=== PATIENT | female | born 1955 | race Caucasian/White ===

== ENCOUNTER → 2016-07-15 | Outpatient (REF) | payer OTHER ==
[2016-07-15 17:22] LABS: ALBUMIN 3.7 GM/DL (3.2-5.2); ALBUMIN/GLOBULIN RATIO 1.06 (1.00-1.93); ALKALINE PHOSPHATASE 108 U/L (45-117); ALT/SGPT 21 U/L (12-78); ANION GAP 7 MEQ/L (8-16); AST/SGOT 10 U/L (15-37); BILIRUBIN,TOTAL 0.8 MG/DL (0.2-1.0); BLOOD UREA NITROGEN 11 MG/DL (7-18); CALCIUM LEVEL 8.2 MG/DL (8.8-10.2); CARBON DIOXIDE LEVEL 29 MEQ/L (21-32); CHLORIDE LEVEL 102 MEQ/L (98-107); CREATININE FOR GFR 0.88 MG/DL (0.55-1.02); GLOMERULAR FILTRATION RATE > 60.0 (>45); GLUCOSE, FASTING 97 MG/DL (80-110); POTASSIUM SERUM 3.5 MEQ/L (3.5-5.1); SODIUM LEVEL 138 MEQ/L (136-145); TOTAL PROTEIN 7.2 GM/DL (6.4-8.2)
[2016-07-15 17:31] LABS: BASO % 0.5 % (0.0-1.0); EOS # 0.1 K/mm3 (0.0-0.50); EOS % 1.8 % (0.0-3.0); LARGE UNSTAINED CELL # 0.1 K/mm3 (0.0-0.4); LARGE UNSTAINED CELL % 1.6 % (0.0-4.0); LYMPH % 25.2 % (24.0-44.0); MEAN CORPUSCULAR HEMOGLOBIN 26.5 pg (27.0-33.0); MEAN CORPUSCULAR HGB CONC 31.6 g/dl (32.0-36.5); MEAN CORPUSCULAR VOLUME 83.8 fl (80.0-96.0); MONO # 0.3 K/mm3 (0.0-0.8); MONO % 4.2 % (0.0-5.0); NEUTROPHILS # 5.2 K/mm3 (1.8-7.7); NEUTROPHILS % 66.6 % (36.0-66.0); PLATELET COUNT, AUTOMATED 289 k/mm3 (150-450); WHITE BLOOD COUNT 7.7 K/mm3 (4.0-10.0)
== END ==
LOC: M LABNEURO 14:34
PROVIDERS: ATTEND Psychiatry & Neurology Neurology
DX: G35 Multiple sclerosis (principal)

== ENCOUNTER → 2016-11-06 | Outpatient (REF) | payer OTHER, SELFPAY ==
[2016-11-06 14:05] LABS: TOTAL PROTEIN 7.7 GM/DL (6.4-8.2)
[2016-11-06 15:23] LABS: IMMUNOGLOBULIN G 1330 MG/DL (681-1648); IMMUNOGLOBULIN M 85.3 MG/DL (40-230)
[2016-11-08 18:14] LABS: FREE KAPPA LIGHT CHAINS SERUM 26.2 mg/L (3.3-19.4); FREE LAMBDA LIGHT CHAINS SERUM 68.6 mg/L (5.7-26.3); KAPPA/LAMBDA RATIO SERUM 0.38 (0.26-1.65)
[2016-11-10 10:30] LABS: ALBUMIN % 55.2 % (55.8-66.1)
[2016-11-10 10:31] LABS: ALBUMIN 4.25 GM/DL (3.29-5.55); GAMMA GLOBULIN % 18.3 % (11.1-18.8)
== END ==
LOC: M LAB REF 12:56
PROVIDERS: ATTEND Internal Medicine Medical Oncology
DX: D47.2 Monoclonal gammopathy (principal)

== ENCOUNTER → 2017-07-20 | Outpatient (REF) | payer OTHER ==
[2017-07-20 18:06] LABS: BASO # 0.1 10^3/uL (0.0-0.2); BASO % 0.6 % (0.0-1.0); EOS # 0.2 10^3/uL (0.0-0.50); EOS % 2.2 % (0.0-3.0); HEMATOCRIT 40.5 % (36.0-47.0); HEMOGLOBIN 12.7 g/dl (12.0-16.0); IMMATURE GRANULOCYTE % 0.2 % (0-3.0); LYMPH # 2.4 10^3/uL (1.5-4.5); LYMPH % 29.2 % (24.0-44.0); MEAN CORPUSCULAR HGB CONC 31.4 g/dl (32.0-36.5); MEAN CORPUSCULAR VOLUME 86.2 fl (80.0-96.0); MONO # 0.5 10^3/uL (0.0-0.8); MONO % 5.5 % (0.0-5.0); NEUTROPHILS # 5.2 10^3/uL (1.8-7.7); NEUTROPHILS % 62.3 % (36.0-66.0); PLATELET COUNT, AUTOMATED 326 10^3/uL (150-450); RED CELL DISTRIBUTION WIDTH 14.7 % (11.5-14.5); WHITE BLOOD COUNT 8.3 10^3/uL (4.0-10.0)
[2017-07-20 18:11] LABS: FOLATE 15.8 NG/ML
[2017-07-20 18:13] LABS: ALBUMIN 3.9 GM/DL (3.2-5.2); ALBUMIN/GLOBULIN RATIO 1.05 (1.00-1.93); ALKALINE PHOSPHATASE 101 U/L (45-117); ALT/SGPT 26 U/L (12-78); ANION GAP 8 MEQ/L (8-16); AST/SGOT 14 U/L (7-37); BILIRUBIN,TOTAL 0.8 MG/DL (0.2-1.0); BLOOD UREA NITROGEN 17 MG/DL (7-18); CALCIUM LEVEL 8.8 MG/DL (8.8-10.2); CARBON DIOXIDE LEVEL 28 MEQ/L (21-32); CHLORIDE LEVEL 101 MEQ/L (98-107); CREATININE FOR GFR 1.09 MG/DL (0.55-1.30); GLOMERULAR FILTRATION RATE 54.3 (>45); GLUCOSE, FASTING 95 MG/DL (70-100); POTASSIUM SERUM 3.9 MEQ/L (3.5-5.1); SODIUM LEVEL 137 MEQ/L (136-145); TOTAL PROTEIN 7.6 GM/DL (6.4-8.2)
[2017-07-20 19:44] LABS: VITAMIN B12 LEVEL 388 PG/ML
== END ==
LOC: M LABNEURO 13:59
DX: G35 Multiple sclerosis (principal)

== ENCOUNTER → 2017-08-07 | Outpatient (REF) | payer OTHER ==
[2017-08-07 14:08] LABS: IMMUNOGLOBULIN G 1320 MG/DL (681-1648); IMMUNOGLOBULIN M 67.9 MG/DL (40-230); TOTAL PROTEIN 7.6 GM/DL (6.4-8.2)
[2017-08-10 00:06] LABS: FREE KAPPA LIGHT CHAINS SERUM 27.9 mg/L (3.3-19.4); FREE LAMBDA LIGHT CHAINS SERUM 72.5 mg/L (5.7-26.3); KAPPA/LAMBDA RATIO SERUM 0.38 (0.26-1.65)
[2017-08-10 00:06] LABS: BETA 2 MICROGLOBULIN 2.7 mg/L (0.6-2.4)
[2017-08-11 11:09] LABS: ALBUMIN 4.14 GM/DL (3.29-5.55); ALBUMIN % 54.5 % (55.8-66.1); ALPHA-1-GLOBULIN % 4.9 % (2.9-4.9); ALPHA-1-GLOBULINS 0.37 GM/DL (0.17-0.41); ALPHA-2-GLOBULINS % 9.9 % (7.1-11.8); BETA-1-GLOBULINS % 6.7 % (4.7-7.2); BETA-2-GLOBULINS % 5.9 % (3.2-6.5); GAMMA GLOBULIN % 18.1 % (11.1-18.8)
[2017-08-11 11:10] LABS: ALPHA-2-GLOBULINS 0.75 GM/DL (0.42-0.99); BETA-1-GLOBULINS 0.51 GM/DL (0.28-0.60); BETA-2-GLOBULINS 0.45 GM/DL (0.19-0.55); GAMMA GLOBULINS 1.38 GM/DL (0.65-1.58)
== END ==
LOC: M LAB REF 13:17
DX: D47.2 Monoclonal gammopathy (principal)
CPT/HCPCS: 84165

== ENCOUNTER → 2023-08-12 | Outpatient (CLI) | payer OTHER ==
[~2023-08-12] VITALS: Ht 165.1 cm; Wt 102.0 kg
[~2023-08-12] MED LIST: COPA1INJ INJ; HYDR50TA70 PO; LEVO-94 PO; LEVO125T4; LISI20TA37 PO; MIRT1TAB16 PO; VITA200016
[2023-08-12 12:00] VITALS: BP 147/70; O2SAT 97
[2023-08-12] MEDS: IRON SUCROSE 300 MG in NS 250 ML OVER 90 MIN. IV ONE (12:10)
[2023-08-12 14:00] VITALS: BP 141/65; O2SAT 100
== END ==
LOC: M INFU 11:38
PROVIDERS: ATTEND Nurse Practitioner
DX: D50.9 Iron deficiency anemia, unspecified (principal); Z88.0 Allergy status to penicillin; Z88.1 Allergy status to other antibiotic agents
CPT/HCPCS: 96365; J1756

== ENCOUNTER 2023-08-19 11:15 | Outpatient (CLI) | payer MEDICARE, OTHER ==
[~2023-08-19] VITALS: Ht 165.1 cm; Wt 103.5 kg
[2023-08-19 11:19] VITALS: BP 140/72; O2SAT 94
[2023-08-19] MEDS: IRON SUCROSE 300 MG in NS 250 ML OVER 90 MIN. IV ONE (11:26)
[2023-08-19 13:15] VITALS: BP 134/68; O2SAT 96
== END 2023-08-19 13:20 ==
LOC: M INFU 11:15
PROVIDERS: ATTEND Nurse Practitioner
DX: D50.9 Iron deficiency anemia, unspecified (principal); Z88.0 Allergy status to penicillin; Z88.1 Allergy status to other antibiotic agents
CPT/HCPCS: 96365; 96366; J1756

== ENCOUNTER 2023-08-26 15:00 | Outpatient (CLI) | payer OTHER ==
[~2023-08-26] VITALS: Ht 165.1 cm; Wt 103.5 kg
[2023-08-26 15:00] VITALS: BP 145/67; O2SAT 99
[2023-08-26] MEDS: IRON SUCROSE 300 MG in NS 250 ML OVER 90 MIN. IV ONE (15:14)
[2023-08-26 17:20] VITALS: BP 122/59; O2SAT 99
== END 2023-08-26 17:20 | disposition home or self-care (01) ==
LOC: M INFU 15:00
PROVIDERS: ATTEND Nurse Practitioner
DX: D50.9 Iron deficiency anemia, unspecified (principal); Z88.0 Allergy status to penicillin; Z88.1 Allergy status to other antibiotic agents
CPT/HCPCS: 96365; 96366; J1756

== ENCOUNTER 2023-09-02 11:05 | Outpatient (CLI) | payer OTHER ==
[~2023-09-02] VITALS: Ht 162.6 cm; Wt 102.0 kg
[2023-09-02 11:05] VITALS: BP 143/64; O2SAT 100
[2023-09-02] MEDS: IRON SUCROSE 300 MG in NS 250 ML OVER 90 MIN. IV ONE (11:09)
== END 2023-09-02 12:50 | disposition home or self-care (01) ==
LOC: M INFU 11:05
PROVIDERS: ATTEND Nurse Practitioner
DX: D50.9 Iron deficiency anemia, unspecified (principal); Z88.0 Allergy status to penicillin; Z88.1 Allergy status to other antibiotic agents
CPT/HCPCS: 96365; 96366; J1756

== ENCOUNTER 2023-09-09 10:58 | Outpatient (CLI) | payer OTHER, MEDICARE ==
[~2023-09-09] VITALS: Ht 162.6 cm; Wt 112.5 kg
[2023-09-09] MEDS: IRON SUCROSE 300 MG in NS 250 ML OVER 90 MIN. IV ONE (11:51)
[2023-09-09 13:30] VITALS: BP 122/56; O2SAT 100
== END 2023-09-09 13:30 | disposition home or self-care (01) ==
LOC: M INFU 10:58
PROVIDERS: ATTEND Nurse Practitioner
DX: D50.9 Iron deficiency anemia, unspecified (principal); Z88.0 Allergy status to penicillin; Z88.1 Allergy status to other antibiotic agents
CPT/HCPCS: 96365; 96366; J1756

== ENCOUNTER → 2024-02-12 | Outpatient (CLI) | payer OTHER ==
[~2024-02-12] VITALS: Ht 162.6 cm; Wt 100.0 kg
[~2024-02-12] MED LIST changes: +ENOX40IN3; +LABETALOL 100MG/20ML VIAL As Ordered ONE; +LIDO30CR18 TOP; +LIDOCAINE 1% MDV 20ML VIAL As Ordered ONE; +MIDAZOLAM INJ 2MG/2ML VIAL As Ordered ONE; +NS 1,000 ML IV SCH; +ONDA-84 PO; +ceFAZolin 2 GM/D5W 50 ML IV BAG As Ordered ONE; +ceFAZolin SOD 2 GM in IV 1 EA IV ONE; +fentaNYL 100 MCG/2 ML INJECTION As Ordered ONE; +hydrALAZINE 20MG/ML 1ML VIAL As Ordered ONE
[2024-02-12 09:10] VITALS: TEMP 96.9
[2024-02-12 11:00] VITALS: BP 124/71; O2SAT 98
== END ==
LOC: M IRPRO 08:58
PROVIDERS: ATTEND Internal Medicine Hematology & Oncology
DX: D47.2 Monoclonal gammopathy (principal); C18.9 Malignant neoplasm of colon, unspecified
CPT/HCPCS: 36561; 99152; 99153; C1894; J0360; J0690; J1642; J1920; J2250; J3010

== ENCOUNTER → 2024-05-12 | Outpatient (CLI) | payer MEDICARE ==
[~2024-05-12] MED LIST changes: +ISOVUE-370 76% 100ML VIAL ONE; -LABETALOL 100MG/20ML VIAL As Ordered ONE; -LIDOCAINE 1% MDV 20ML VIAL As Ordered ONE; -MIDAZOLAM INJ 2MG/2ML VIAL As Ordered ONE; -NS 1,000 ML IV SCH; +VANC125C12; -ceFAZolin 2 GM/D5W 50 ML IV BAG As Ordered ONE; -ceFAZolin SOD 2 GM in IV 1 EA IV ONE; -fentaNYL 100 MCG/2 ML INJECTION As Ordered ONE; -hydrALAZINE 20MG/ML 1ML VIAL As Ordered ONE
== END ==
LOC: M PLAIMG 08:08
PROVIDERS: ATTEND Nurse Practitioner Women's Health
DX: C18.9 Malignant neoplasm of colon, unspecified (principal); K76.89 Other specified diseases of liver; D73.89 Other diseases of spleen
CPT/HCPCS: 71260; 74178; Q9967

== ENCOUNTER → 2024-09-05 | Outpatient (CLI) | payer MEDICARE ==
[~2024-09-05] MED LIST changes: +ACET-683 PO; +AMLO1TAB25; -ISOVUE-370 76% 100ML VIAL ONE; +NITR-67 PO
== END ==
LOC: M PLARAD 14:58
PROVIDERS: ATTEND Nurse Practitioner Women's Health
DX: C18.7 Malignant neoplasm of sigmoid colon (principal)
CPT/HCPCS: 78815; A9552

== ENCOUNTER → 2024-11-16 | Outpatient (REF) | payer MEDICARE ==
[~2024-11-16] MED LIST changes: +CIPR-249 PO; +CIPR-250 PO; +POTA-151 PO
[2024-11-16 12:20] LABS: APPEARANCE, URINE CLOUDY (CLEAR); BACTERIA, URINE AUTO 1+ (NEGATIVE); BILIRUBIN, URINE AUTO NEGATIVE (NEGATIVE); BLOOD, URINE BLOOD NEGATIVE (NEGATIVE); CALCIUM OXALATE CRYSTALS LARGE; GLUCOSE, URINE (UA) AUTO NEGATIVE (NEGATIVE); KETONE, URINE AUTO NEGATIVE (NEGATIVE); LEUKOCYTE ESTERASE, URINE AUTO 2+ (NEGATIVE); MUCUS, URINE SMALL (NEGATIVE); NITRITE, URINE AUTO POSITIVE (NEGATIVE); PROTEIN, URINE AUTO NEGATIVE (NEGATIVE); RBC, URINE AUTO 3 /HPF (0-3); SPECIFIC GRAVITY URINE AUTO 1.017 (1.002-1.035); SQUAMOUS EPITHELIAL CELL UR AU 6 /HPF (0-6); UROBILINOGEN, URINE AUTO 0.2 mg/dL (0.0-2.0); WBC, URINE AUTO 42 /HPF (0-3)
== END ==
LOC: M LAB REF 11:53
PROVIDERS: ATTEND Internal Medicine Hematology & Oncology
DX: C18.9 Malignant neoplasm of colon, unspecified (principal); Z79.899 Other long term (current) drug therapy

== ENCOUNTER → 2024-12-29 | Outpatient (CLI) | payer MEDICARE ==
[~2024-12-29] MED LIST changes: +ISOVUE-370 76% 100 ML VIAL As Ordered ONE
== END ==
LOC: M RAD 12:24
PROVIDERS: ATTEND Student in an Organized Health Care Education/Training Program
DX: C18.9 Malignant neoplasm of colon, unspecified (principal)
CPT/HCPCS: 71260; 74177; Q9967

== ENCOUNTER → 2025-01-19 | Outpatient (CLI) | payer MEDICARE ==
[~2025-01-19] MED LIST changes: -ISOVUE-370 76% 100 ML VIAL As Ordered ONE
== END ==
LOC: M RAD 08:32
PROVIDERS: ATTEND Student in an Organized Health Care Education/Training Program
DX: C18.9 Malignant neoplasm of colon, unspecified (principal); Z90.49 Acquired absence of other specified parts of digestive tract

== ENCOUNTER → 2025-01-23 | Outpatient (CLI) | payer MEDICARE ==
[~2025-01-23] MED LIST changes: +PROHANCE 279.3MG/ML 15ML VIAL ONE; +PROHANCE 279.3MG/ML 5ML VIAL ONE
== END ==
LOC: M PLAIMG 10:02
PROVIDERS: ATTEND Student in an Organized Health Care Education/Training Program
DX: C18.9 Malignant neoplasm of colon, unspecified (principal)
CPT/HCPCS: 70553; A9576

== ENCOUNTER → 2025-03-06 | Outpatient (CLI) | payer MEDICARE ==
[~2025-03-06] MED LIST changes: -PROHANCE 279.3MG/ML 15ML VIAL ONE; -PROHANCE 279.3MG/ML 5ML VIAL ONE
== END ==
LOC: M PLARAD 10:25
PROVIDERS: ATTEND Student in an Organized Health Care Education/Training Program
DX: C90.00 Multiple myeloma not having achieved remission (principal); R59.0 Localized enlarged lymph nodes
CPT/HCPCS: 78816; A9552

== ENCOUNTER → 2025-04-06 | Outpatient (CLI) | payer MEDICARE ==
[~2025-04-06] MED LIST changes: +ONDA-282 PO; +PROC5TAB81 PO
== END ==
LOC: M ONCR 09:31
PROVIDERS: ATTEND General Practice
DX: C77.2 Secondary and unspecified malignant neoplasm of intra-abdominal lymph nodes (principal); C18.9 Malignant neoplasm of colon, unspecified; Z79.899 Other long term (current) drug therapy; Z90.49 Acquired absence of other specified parts of digestive tract; Z98.51 Tubal ligation status; Z80.6 Family history of leukemia; Z80.1 Family history of malignant neoplasm of trachea, bronchus and lung; Z80.7 Family history of other malignant neoplasms of lymphoid, hematopoietic and related tissues; Z87.891 Personal history of nicotine dependence; Z88.0 Allergy status to penicillin; Z88.1 Allergy status to other antibiotic agents

== ENCOUNTER → 2025-04-26 | Outpatient (RCR) | payer MEDICARE | LOC: M ONCR 04-13 10:35 | PROVIDERS: ATTEND General Practice | DX: Z51.0 Encounter for antineoplastic radiation therapy (principal); C77.2 Secondary and unspecified malignant neoplasm of intra-abdominal lymph nodes ==